=== PATIENT | male | born 1970 | race Caucasian/White ===

== ENCOUNTER 2016-10-30 12:22 | Outpatient (CLI) | payer OTHER ==
[2016-10-30 12:38] LABS: BASOPHILS # (AUTO) 0.1 K/uL (0-0.2); EOSINOPHILS # (AUTO) 0.5 K/ul (0.0-0.7); EOSINOPHILS % (AUTO) 4.4 % (0.0-7.0); HEMATOCRIT 45.9 % (42.0-52.0); HEMOGLOBIN 16.3 g/dl (14.0-18.0); IMMATURE GRANULOCYTE % (AUTO) 0.4 % (0.0-5.0); LYMPHOCYTES % (AUTO) 38.5 (10.0-50.0); MEAN CORPUSCULAR HEMOGLOBIN 31.2 pg (27.0-31.0); MEAN CORPUSCULAR HGB CONC 35.5 (31.8-35.4); MEAN CORPUSCULAR VOLUME 87.8 fl (80.0-94.0); MONOCYTES # (AUTO) 0.8 K/uL (0.4-2.0); MONOCYTES % (AUTO) 7.7 (0-10); PLATELET COUNT 253 10^3/uL (140-440); RED BLOOD COUNT 5.23 10^6/ul (4.70-6.10); WHITE BLOOD COUNT 10.44 K/ul (4.2-10.2)
[2016-10-30 12:57] LABS: ALBUMIN 3.3 g/dL (3.4-5.0); ALBUMIN/GLOBULIN RATIO 0.8; ANION GAP 15.2; BILIRUBIN,TOTAL 0.36 mg/dL (0.00-1.20); BUN/CREATININE RATIO 15.47; CALCIUM 9.2 mg/dL (8.2-10.2); CREATININE 0.84 mg/dL (0.60-1.10); POTASSIUM 4.2 mmol/L (3.5-5.1); TOTAL PROTEIN 7.4 g/dL (6.4-8.2)
== END 2016-10-30 12:23 | disposition home or self-care (01) ==
LOC: LAB 12:22
PROVIDERS: ATTEND Internal Medicine Hematology & Oncology
DX: D75.1 Secondary polycythemia (principal)
CPT/HCPCS: 36415; 80053; 85025

== ENCOUNTER 2016-12-30 12:51 | Outpatient (CLI) | payer OTHER ==
[2016-12-30 13:17] LABS: BASOPHILS # (AUTO) 0.1 K/uL (0-0.2); EOSINOPHILS # (AUTO) 0.3 K/ul (0.0-0.7); EOSINOPHILS % (AUTO) 2.9 % (0.0-7.0); HEMATOCRIT 44.2 % (42.0-52.0); HEMOGLOBIN 15.4 g/dl (14.0-18.0); IMMATURE GRANULOCYTE % (AUTO) 0.4 % (0.0-5.0); LYMPHOCYTES # (AUTO) 3.7 K/uL (0.60-3.4); LYMPHOCYTES % (AUTO) 32.8 (10.0-50.0); MEAN CORPUSCULAR HEMOGLOBIN 30.7 pg (27.0-31.0); MEAN CORPUSCULAR HGB CONC 34.8 (31.8-35.4); MEAN CORPUSCULAR VOLUME 88.2 fl (80.0-94.0); MONOCYTES # (AUTO) 0.8 K/uL (0.4-2.0); NEUTROPHILS # (AUTO) 6.3 K/ul (2.0-6.9); NEUTROPHILS % (AUTO) 55.9; PLATELET COUNT 300 10^3/uL (140-440); RED BLOOD COUNT 5.01 10^6/ul (4.70-6.10); WHITE BLOOD COUNT 11.21 K/ul (4.2-10.2)
== END 2016-12-30 12:52 | disposition home or self-care (01) ==
LOC: LAB 12:51
PROVIDERS: ATTEND Internal Medicine Hematology & Oncology
DX: D75.1 Secondary polycythemia (principal)
CPT/HCPCS: 36415; 85025

== ENCOUNTER 2017-04-29 12:18 | Outpatient (CLI) ==
[2017-04-29 12:42] LABS: BASOPHILS # (AUTO) 0.1 K/uL (0-0.2); BASOPHILS % (AUTO) 0.9 % (0.0-3.0); EOSINOPHILS # (AUTO) 0.4 K/ul (0.0-0.7); EOSINOPHILS % (AUTO) 3.4 % (0.0-7.0); HEMOGLOBIN 17.2 g/dl (14.0-18.0); IMMATURE GRANULOCYTE % (AUTO) 0.3 % (0.0-5.0); LYMPHOCYTES # (AUTO) 3.9 K/uL (0.60-3.4); LYMPHOCYTES % (AUTO) 37.6 (10.0-50.0); MEAN CORPUSCULAR HEMOGLOBIN 31.7 pg (27.0-31.0); MEAN CORPUSCULAR HGB CONC 35.5 (31.8-35.4); MEAN CORPUSCULAR VOLUME 89.3 fl (80.0-94.0); MONOCYTES % (AUTO) 9.4 (0-10); NEUTROPHILS % (AUTO) 48.4; PLATELET COUNT 272 10^3/uL (140-440); RED BLOOD COUNT 5.43 10^6/ul (4.70-6.10)
[2017-04-29 12:49] LABS: HEMATOCRIT 48.5 % (42.0-52.0)
[2017-04-29 13:02] LABS: ALBUMIN 3.2 g/dL (3.4-5.0); ALBUMIN/GLOBULIN RATIO 0.78; ANION GAP 11.9; BILIRUBIN,TOTAL 0.27 mg/dL (0.00-1.20); BUN/CREATININE RATIO 14.77; CALCIUM 9.8 mg/dL (8.2-10.2); CREATININE 0.88 mg/dL (0.60-1.10); POTASSIUM 3.9 mmol/L (3.5-5.1); TOTAL PROTEIN 7.3 g/dL (6.4-8.2)
== END 2017-04-29 12:19 | disposition home or self-care (01) ==
LOC: LAB 12:18
PROVIDERS: ATTEND Internal Medicine Hematology & Oncology
DX: D75.1 Secondary polycythemia (principal)
CPT/HCPCS: 36415; 80053; 85025

== ENCOUNTER 2017-10-27 12:22 | Outpatient (CLI) | payer OTHER | END 2017-10-27 12:23 | disposition home or self-care (01) | LOC: LAB 12:22 | PROVIDERS: ATTEND Internal Medicine Hematology & Oncology | DX: D75.1 Secondary polycythemia (principal) | CPT/HCPCS: 36415; 80053; 85025 ==

== ENCOUNTER 2018-04-28 11:55 | Outpatient (CLI) | END 2018-04-28 11:56 | disposition home or self-care (01) | LOC: LAB 11:55 | PROVIDERS: ATTEND Internal Medicine Hematology & Oncology | DX: D75.1 Secondary polycythemia (principal) | CPT/HCPCS: 36415; 80053; 85025 ==

== ENCOUNTER 2018-10-26 11:52 | Outpatient (CLI) | payer OTHER | END 2018-10-26 11:53 | disposition home or self-care (01) | LOC: LAB 11:52 | PROVIDERS: ATTEND Internal Medicine Hematology & Oncology | DX: D75.1 Secondary polycythemia (principal) | CPT/HCPCS: 36415; 80053; 85025 ==

== ENCOUNTER 2024-04-06 12:09 | Observation (INO) ==
--- NOTE | 2024-04-06 12:28 | ED.PDOC ---
General ED Provider: Dr. MURALI RANGEL MD Chief Complaint: Ankle Pain/Injury Stated Complaint: Patient is a 53-year-old male that reported to the emergency department with right ankle pain and swelling. Patient stated that it started this morning. Patient stated that he does not remember hurting himself but he has been walking around a lot recently. Patient stated that he had a stroke on his right side which makes him a little bit more worried that he is having pain in that right ankle. Patient denied any deformity. Patient stated that his primary care doctor has diagnosed him with edema of the lower extremities and placed him on Lasix but he has not used them as prescribed. Patient also states that he has had swelling bilaterally in the lower extremities for the past few days. Patient denies any discharge or ulcers in the lower extremities. Patient denies any shortness of breath, chest pain, nausea, vomiting, diarrhea, dizziness, syncope, loss of consciousness, or any other acute symptoms not currently mentioned in the HPI. Patient's GCS is 15. Patient's vital signs are stable. Patient does have a history of CKD, GERD, CVA, diabetes mellitus type 2, hyperlipidemia, and hypertension. Time Seen by Provider: 04/06/24 12:12 Mode of Arrival: Walk-In Information Source: Patient Exam Limitations: No limitations Primary Care Provider: KEITH DIGGS APRN, FNP-C Nursing and Triage Documentation Reviewed and Agree: Yes Does Patient Take Opioids?: No Is Patient Opioid Naive?: No What is Opioid Naive?: *Opioid Naive implies the patient is not already taking opioids or not chronically receiving opioids on a daily basis. *PRN dosing is not "usually" associated with tolerance. *Patients are at higher risk of over-sedation and aspiration. Is Patient Opioid Tolerant?: No What is Opioid Tolerant?: *Opioid Tolerance implies less than the expected response to an opioid. *Acquired tolerance is defined by the patient taking 60mg of oral morphine daily (or equianalgesic dose of another opioid) for 1 week or more. *Often associated with chronic pain. *May take more than usual dose to achieve desired pain control. Review of Systems Review Of Systems Constitutional: Reports No symptoms Eyes: Reports No symptoms Ears, Nose, Mouth, Throat: Reports No symptoms Respiratory: Reports No symptoms Cardiac: Reports No symptoms GI: Reports No symptoms : Reports No symptoms Musculoskeletal: Reports Joint pain (Right ankle pain and right foot pain) Skin: Reports No symptoms Neurological: Reports No symptoms Endocrine: Reports No symptoms Hematologic/Lymphatic: Reports No symptoms All Other Systems: Reviewed and Negative PFSH Family History FATHER COPD (chronic obstructive pulmonary disease) Lung cancer Diabetes Hypertension Mother Diabetes Hypertension MATERNAL GRANDMOTHER Diabetes Social History Smoking and tobacco status: Current every day smoker Tobacco type: cigarettes Tobacco: How many years used: 35 How long ago did patient quit smoking: restarted smoking in November 2022 Quit status: not considering quitting Second hand smoke exposure: Yes Smoking risk assessment performed: Yes Alcohol intake: former Year quit: 30 + Substance use type: does not use Counseling provided: none Michelle/rastafari: NONE Special michelle needs: No Agree to transfusion: Yes Adopted: Yes Caregiver/support person: No Foster care: No Household members: none Housing: apartment Marital status: D Lives independently: Yes Number of children: 2 Number of grandchildren: 8 Highest education level completed: high school graduate Financial difficulty paying for basics: somewhat hard service: No intermediate: No Current occupational status: disabled 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[place] Pets and animals: No Leisure activites: games and other History of recent travel: No Sexually active: No Do you think of yourself as: straight/heterosexual Current gender identity: male Seatbelt use: always Drives intoxicated or rides with intoxicated van driver: No Current diet type/program: regular Well-balanced diet: rarely Caffeine: Yes Eating out: other Reads food labels: seldom or never During the past year weight has: remained stable Water heater temperature set < 120 degrees: Yes Working smoke detector in home: Yes Fire extinguisher in home: Yes Carbon monoxide detector in home: Yes Firearms in home: Yes What type of physical activity do you participate in?: none Physical activity functional status: assisted ambulation How many days of moderate to strenuous exercise, like a brisk walk, did you do in the last 7 days: 0 Surgical History 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 Z98.890 - Other specified postprocedural states (ICD-10) Physical Exam Physical Exam Appearance: Reports Well-appearing and Well-nourished Ill-appearing: None Pain Distress: Mild Eyes: Reports INGRID, EOMI and Conjunctiva clear ENT: Reports Ears normal, Nose normal and Oropharynx normal Neck: Supple Respiratory: Reports Airway patent, Breath sounds clear, Breath sounds equal and Respirations nonlabored Cardiovascular: Reports RRR, Pulses normal, No rub and No murmur GI/: Reports Soft, Nontender, No masses, Bowel sounds normal and No Organomegaly Musculoskeletal: Reports Normal strength, No calf tenderness, Limited ROM (Limited range of motion in plantar and dorsiflexion of the right ankle due to pain. No obvious deformities noted.) and Edema (Patient has stasis dermatitis of the lower extremities around the ankles bilaterally. Patient also has +2 pitting edema bilaterally. Patient's left lower extremity dermatitis is more erythematous than the right. Pain to palpation of that left lower extremity around the RIGHT ankle swelling) Skin: Reports Warm, Dry and Other (Patient has an erythematous circumferential area of cellulitis around the right ankle up to the low whitt. There is no discharge. Patient also has a diabetic ulcer on the lateral aspect of the right fifth LE phalange (No purulent discharge noted).) Neurological: Reports Sensation intact, Motor intact, Reflexes intact, Cranial nerves intact, Alert and Oriented Psychiatric: Reports Affect appropriate and Mood appropriate Critical Care Note Critical Care Note Total Critical Care Time (mins): 60 Comments: Critical Care Procedure Note Authorized and Performed by:Dr. Murali Rangel MD, MPH Total critical care time: 60 minutes Due to a high probability of clinically significant, life threatening deterioration, the patient required my highest level of preparedness to intervene emergently and I personally spent this critical care time directly and personally managing the patient. This critical care time included obtaining a history; examining the patient; pulse oximetry; ordering and review of studies; arranging urgent treatment with development of a management plan; evaluation of patient's response to treatment; frequent reassessment; and, discussions with other providers. This critical care time was performed to assess and manage the high probability of imminent, life-threatening deterioration that could result in multi-organ failure. It was exclusive of separately billable procedures and treating other patients and teaching time. Please see MDM section and the rest of the note for further information on patient assessment and treatment. Course Course 04/06/24 13:21 04/06/24 13:21 Orders, Labs, Meds: Lab Review 04/06/24 04/06/24 13:21 14:22 WBC 17.17 H RBC 4.09 L Hgb 12.2 L Hct 38.8 L MCV 94.9 H MCH 29.8 MCHC 31.4 L RDW Coeff of Michaela 14.1 Plt Count 281 Immature Gran % (Auto) 0.5 Neut % (Auto) 82.6 H Lymph % (Auto) 7.7 L [place] % (Auto) 5.8 Eos % (Auto) 3.0 Baso % (Auto) 0.4 Neut # (Auto) 14.2 H Lymph # (Auto) 1.3 [place] # (Auto) 1.0 Eos # (Auto) 0.5 Baso # (Auto) 0.1 Immature Gran # (Auto) 0.1 Sodium 139.7 Potassium 5.25 H Chloride 110.5 H Carbon Dioxide 18.3 L Anion Gap 16.15 BUN 49.1 H Creatinine 3.01 H Estimated GFR (MDRD) 22.00 BUN/Creatinine Ratio 16.31 Glucose 90.0 Calcium 9.37 Total Bilirubin 0.59 AST 26.6 ALT 17.9 Alkaline Phosphatase 100.8 Total Protein 7.56 Albumin 4.07 Globulin 3.49 Albumin/Globulin Ratio 1.16 Urine Color Yellow Urine Clarity Cloudy Urine pH 7.0 Ur Specific [place] 1.025 Urine Protein 3+ H Urine Glucose (UA) 2+ H Urine Ketones Negative Urine Blood 1+ H Urine Nitrite Negative Urine Bilirubin Negative Urine Urobilinogen 0.2 Ur Leukocyte Esterase Negative Urine Microscopic RBC 5-10 Urine Microscopic WBC 30-50 Ur Squamous Epith Cells Not present Urine Bacteria 1+ SARS CoV-2 RNA Rapid ISABEL Negative Orders Category Date Time Status OBSERVATION [PLACE PATIENT OBSERVATION] .TO MEDSURG ADMISSION 04/06/24 15:56 Ordered (MONITORED BED) EKG-(ED ONLY) Stat CARDIO 04/06/24 13:52 Completed NEBULIZER TREATMENT Stat CARDIO 04/06/24 13:59 Completed NEBULIZER TREATMENT Stat CARDIO 04/06/24 14:00 Completed NEBULIZER TREATMENT Stat CARDIO 04/06/24 14:01 Completed TELEMETRY MONITORING TELE CARE 04/06/24 15:57 Ordered BLOOD CULTURE (ED ONLY) Stat LAB 04/06/24 15:35 Received CBC W/ AUTO DIFF Stat LAB 04/06/24 13:21 Completed CMP [COMPREHENSIVE METABOLIC PANEL] Stat LAB 04/06/24 13:21 Completed COVID [SARS COV-2 RNA RAPID ISABEL] Stat LAB 04/06/24 14:22 Completed CULTURE WOUND [WOUND CULTURE] Stat LAB 04/06/24 15:54 Ordered URINALYSIS C & S IF INDICATED Stat LAB 04/06/24 14:22 Completed URINE CULTURE Stat LAB 04/06/24 14:22 Received Albuterol Sulfate 0.042% Neb [Albuterol 0.042% Neb] Meds 04/06/24 13:59 Discontinued 1.25 mg NEB ONCE STA Albuterol Sulfate 0.042% Neb [Albuterol 0.042% Neb] Meds 04/06/24 14:00 Discontinued 1.25 mg NEB ONCE STA Albuterol Sulfate 0.042% Neb [Albuterol 0.042% Neb] Meds 04/06/24 14:01 Discontinued 1.25 mg NEB ONCE STA Calcium Chloride Syringe [Calcium Chloride 10%] Meds 04/06/24 13:55 Discontinued 1,000 mg IVP ONCE STA Clindamycin Phosphate/D5w [Cleocin 600 mg/50 ml D5w] Meds 04/06/24 15:00 Discontinued 600 mg in 50 ml IV ONCE Dextrose 50 % in Water [Dextrose 50%-Water Abboject] Meds 04/06/24 13:55 Discontinued 50 ml IVP ONCE STA Furosemide [Lasix] Meds 04/06/24 14:18 Discontinued 60 mg IVP ONCE STA Insulin Regular, Human [Humulin R (10Ml)] Meds 04/06/24 13:55 Discontinued 10 unit IVP ONCE STA Ringers Lactated Solution [Lactated Ringers] 1,000 ml Meds 04/06/24 13:53 Active IV 100 mls/hr ANKLE, RIGHT MIN 3 VIEWS Stat RADS 04/06/24 12:22 Completed FOOT, RIGHT 3 VIEWS Stat RADS 04/06/24 12:22 Completed ULTRASOUND VENOUS SCAN RT. LEG [U/S VENOUS SCAN RT LEG] RADS 04/06/24 14:03 Completed Stat Medications Generic Name Dose Route Start Last Admin Trade Name Freq PRN Reason Stop Dose Admin Lactated Ringer's 1,000 mls @ 100 mls/hr 04/06/24 13:53 Lactated Ringers IV 04/06/24 23:52 .Q10H ONE Discontinued Medications Generic Name Dose Route Start Last Admin Trade Name Tino PRN Reason Stop Dose Admin Albuterol Sulfate 1.25 mg 04/06/24 13:59 04/06/24 14:32 Albuterol Sulfate 0.042% Vial.[facility] 04/06/24 14:00 1.25 mg ONCE STA Administration Albuterol Sulfate 1.25 mg 04/06/24 14:00 04/06/24 14:48 Albuterol Sulfate 0.042% Vial.[facility] 04/06/24 14:01 1.25 mg ONCE STA Administration Albuterol Sulfate 1.25 mg 04/06/24 14:01 04/06/24 14:23 Albuterol Sulfate 0.042% Vial.[facility] 04/06/24 14:02 1.25 mg ONCE STA Administration Calcium Chloride 1,000 mg 04/06/24 13:55 04/06/24 14:34 Calcium Chloride 1000 Mg/10 Ml Syringe IVP 04/06/24 13:56 1,000 mg ONCE STA Administration Dextrose 50 ml 04/06/24 13:55 04/06/24 14:34 Dextrose 50 % In Water 50 Ml Disp.Syrin IVP 04/06/24 13:56 50 ml ONCE STA Administration Furosemide 60 mg 04/06/24 14:18 04/06/24 14:47 Furosemide Inj 100 Mg/10 Ml Vial IVP 04/06/24 14:19 60 mg ONCE STA Administration Clindamycin Phosphate 600 mg in 50 mls @ 75 mls/hr 04/06/24 15:00 04/06/24 15:43 Cleocin 600 Mg/50 Ml D5w IV 04/06/24 15:39 75 mls/hr ONCE ONE Administration Insulin Human Regular 10 unit 04/06/24 13:55 04/06/24 14:43 Insulin Regular, Human 100 Unit/Ml (10ml) Vial IVP 04/06/24 13:56 10 unit ONCE STA Administration Vital Signs: Temp Pulse Resp BP Pulse Ox 04/06/24 12:24 98.6 F 85 18 168/84 H 99 Discharge Plan Discharge Patient Disposition: PLACED OBSERVATION Discharge Problem: Foot pain, right, Edema of both lower extremities, Chronic stasis dermatitis, Acute kidney injury superimposed on chronic kidney disease, Acute hyperkalemia, Dehydration Ankle pain, right Qualifiers: Chronicity: acute Qualified Code(s): M25.571 - Pain in right ankle and joints of right foot Cellulitis Qualifiers: Site of cellulitis: extremity Site of cellulitis of extremity: lower extremity Laterality: right Qualified Code(s): L03.115 - Cellulitis of right lower limb Fracture of toe of right foot Qualifiers: Encounter type: initial encounter Toe: lesser toe Fracture type: closed P halanx: proximal Fracture alignment: nondisplaced Qualified Code(s): S92.514A - Nondisplaced fracture of proximal phalanx of right lesser toe(s), initial encounter for closed fracture Did you review [place] [employer] for ALL controlled substances?: Not Applicable ED Provider: MURAIL RANGEL Condition: Stable Physician Progress Note: Patient is a 53-year-old male that reported to the emergency department with right ankle pain and swelling. Patient stated that it started this morning. Patient stated that he does not remember hurting himself but he has been walking around a lot recently. Patient stated that he had a stroke on his right side which makes him a little bit more worried that he is having pain in that right ankle. Patient denied any deformity. Patient stated that his primary care doctor has diagnosed him with edema of the lower extremities and placed him on Lasix but he has not used them as prescribed. Patient also states that he has had swelling bilaterally in the lower extremities for the past few days. Patient denies any discharge or ulcers in the lower extremities. Patient denies any shortness of breath, chest pain, nausea, vomiting, diarrhea, dizziness, syncope, loss of consciousness, or any other acute symptoms not currently mentioned in the HPI. Patient's GCS is 15. Patient's vital signs are stable. Patient does have a history of CKD, GERD, CVA, diabetes mellitus type 2, hyperlipidemia, and hypertension. -Will order x-ray of the right ankle and right foot due to patient's injury to the right lower extremity. -X-ray of the patient's right ankle shows no acute fractures or dislocations. This was interpreted by the ER physician. -X-rays of the patient's right foot shows Minimally-displaced fracture at the base of the fourth proximal phalanx and likely additional fracture at the medial aspect of the fifth proximal phalanx base. Overall evaluation of small nondisplaced fractures limited by the degree of osseous demineralization. This was interpreted by the ER physician. Will jamshid tape pt's 4th and 5th phalanx. --Patient has lower extremity edema that is pitting 2+ with stasis dermatitis. Will give the patient IV Lasix 60 mg once for diuresis. -Will oorder an ultrasound of the right lower extremity to rule out blood clot as patient has pain in the right ankle with erythema around the area. -Patient has a white count of 17,000, H&H is 12 and 38 respectively (anemia of chronic kidney disease). Patient's potassium is 5.25 (hyperkalemic). Patient's BUN is 49 and creatinine is 3.01 which is elevated from baseline (RICHIE on CKD). -EKG shows normal sinus rhythm with a rate of [address] elevations noted. This was interpreted by the ER physician. -For patient's hyperkalemia will give IV insulin 10 units followed by IV dextrose 50. Will give 3 albuterol treatments. Will give calcium chloride 1 g. -For patient's RICHIE on CKD and due to patient's hyperkalemia in order to prevent from worsening of hyperkalemia or acidosis will give IV lactated Ringer's 1 L at 100 mL an hour. -Will order wound cultures of the patient's right foot ulcer and blood cultures. -Appears patient has also has cellulitis of the right lower extremity. Will give the patient IV clindamycin 300 mg once in the ER -([id number]) spoke to hospitalist at [facility], Jose Landon NP and discussed the patient's case and current treatment and current status. She knows patient is pending ultrasound of the right lower extremity to rule out DVT. She has agreed to accept the patient for observation in the hospital. Will wait for the right lower extremity ultrasound in case heparinization is needed and then place the patient on observation status in the hospital. -No evidence of DVT found on ultrasound of the right lower extremity. -([id number])Patient will be admitted for observation in the hospital.
[2024-04-06 13:25] LABS: BASOPHILS # (AUTO) 0.1 K/uL (0-0.2); BASOPHILS % (AUTO) 0.4 % (0.0-3.0); EOSINOPHILS # (AUTO) 0.5 K/ul (0.0-0.7); HEMATOCRIT 38.8 % (42.0-52.0); HEMOGLOBIN 12.2 g/dl (14.0-18.0); IMMATURE GRANULOCYTE # (AUTO) 0.1 (0.0-1.0); IMMATURE GRANULOCYTE % (AUTO) 0.5 % (0.0-5.0); LYMPHOCYTES # (AUTO) 1.3 K/uL (0.60-3.4); LYMPHOCYTES % (AUTO) 7.7 (10.0-50.0); MEAN CORPUSCULAR HEMOGLOBIN 29.8 pg (27.0-31.0); MEAN CORPUSCULAR HGB CONC 31.4 (31.8-35.4); MEAN CORPUSCULAR VOLUME 94.9 fl (80.0-94.0); MONOCYTES % (AUTO) 5.8 (0-10); NEUTROPHILS # (AUTO) 14.2 K/ul (2.0-6.9); NEUTROPHILS % (AUTO) 82.6 % (42.2-75.2); PLATELET COUNT 281 10^3/uL (140-440); RDW COEFFICIENT OF VARIATION 14.1 % (11.6-14.8); RED BLOOD COUNT 4.09 10^6/ul (4.70-6.10); WHITE BLOOD COUNT 17.17 K/ul (4.2-10.2)
[2024-04-06 13:37] LABS: ALANINE AMINOTRANSFERASE 17.9 U/L (0-50); ALBUMIN 4.07 g/dL (3.5-5.0); ALKALINE PHOSPHATASE 100.8 U/L (38-126); ASPARTATE AMINO TRANSFERASE 26.6 U/L (17-59); BILIRUBIN,TOTAL 0.59 mg/dL (0.2-1.3); BLOOD UREA NITROGEN 49.1 mg/dL (9-20); CALCIUM 9.37 mg/dL (8.4-10.2); CARBON DIOXIDE 18.3 mmol/L (22-30.0); CHLORIDE 110.5 mmol/L (98-107); CREATININE 3.01 mg/dL (0.60-1.10); POTASSIUM 5.25 mmol/L (3.5-5.1); SODIUM 139.7 mmol/L (134.5-145); TOTAL PROTEIN 7.56 g/dL (6.3-8.2)
[2024-04-06] MEDS ORDERED: LACTATED RINGERS 1,000 ML IV ONE (13:53)
[2024-04-06] MEDS ORDERED: CLEOCIN 300 MG/50 ML D5W 300 MG/50 ML BAG IV ONE (14:05)
[2024-04-06] MEDS: ALBUTEROL 0.042% NEB NEB STA ×3 (14:23→14:48)
[2024-04-06] MEDS: DEXTROSE 50%-WATER ABBOJECT IVP STA (14:34)
[2024-04-06] MEDS: CALCIUM CHLORIDE 10% IVP STA (14:34)
[2024-04-06] MEDS: HUMULIN R (10ML) IVP STA (14:43)
[2024-04-06] MEDS: LASIX IVP STA (14:47)
[2024-04-06 14:59] LABS: BILIRUBIN,URINE Negative (NEGATIVE); CLARITY,URINE Cloudy (CLEAR); COLOR,URINE Yellow (YELLOW); GLUCOSE, URINE (UA) 2+ (NEGATIVE); KETONES,URINE Negative (NEGATIVE); LEUKOCYTE ESTERASE ,URINE Negative (NEGATIVE); NITRITE,URINE Negative (NEGATIVE); PROTEIN,URINE 3+ (NEGATIVE); URINE, BLOOD 1+ (NEGATIVE); UROBILINOGEN,URINE 0.2 (0.2)
[2024-04-06 15:06] LABS: SQUAMOUS EPITHELIAL CELL,UR NOT PRESENT (0-5)
[2024-04-06 15:07] LABS: BACTERIA,URINE 1+ (NOT PRESENT); URINE WBC, MICROSCOPIC 30-50 (0-2)
[2024-04-06 15:11] LABS: SARS COV-2 RNA RAPID NAAT NEGATIVE (NEGATIVE)
--- NOTE | 2024-04-06 15:18 | DI ---
EXAM: RIGHT FOOT RADIOGRAPH TECHNIQUE: 3 views of the right foot HISTORY: Right foot injury COMPARISON: None. FINDINGS: There is severe osseous demineralization which limits evaluation of small and nondisplaced fractures. Allowing for this there is a minimally displaced fracture at the base of the fourth proximal phalan x and likely additional fracture of the medial aspect of the fifth proximal phalanx base. There is p olyarticular forefoot and midfoot osteoarthritis. No focal soft tissue abnormality. Small calcaneal enthesophytes. Atherosclerotic calcifications. IMPRESSION: Minimally-displaced fracture at the base of the fourth proximal phalanx and likely additional fractur e at the medial aspect of the fifth proximal phalanx base. Overall evaluation of small nondisplaced fractures limited by the degree of osseous demineralization.
--- NOTE | 2024-04-06 15:19 | DI ---
EXAM: RIGHT ANKLE RADIOGRAPH TECHNIQUE: 3 views of the right ankle HISTORY: Right ankle injury. COMPARISON: None. FINDINGS: There is diffuse soft tissue prominence about the ankle. Subjective diffuse osseous demineralization . No fracture or dislocation. Normal contour the talar dome. Mild osteoarthritis at the ankle and hind foot. Calcaneal enthesophytes. Vascular calcifications. IMPRESSION: - No acute fracture or dislocation. - Nonspecific diffuse soft tissue prominence about the ankle. - Osseous demineralization.
[2024-04-06] MEDS: CLEOCIN 600 MG/50 ML D5W 600 MG/50 ML BAG IV ONE (15:43)
--- NOTE | 2024-04-06 15:49 | US ---
EXAM: RIGHT LOWER EXTREMITY VENOUS DOPPLER. HISTORY: Right lower leg swelling, pain. COMPARISON: None. TECHNIQUE: A duplex Doppler study was performed consisting of integrated two dimensional (2D) real-t varinder imaging color flow Doppler and Doppler spectral analysis utilizing linear array probes. FINDINGS: There is normal flow, venous waveforms, compressibility and augmentation of flow within th e right common femoral, greater saphenous, profunda, femoral, popliteal, posterior tibial, and perone al veins. Right anterior tibial vein is not identified. IMPRESSION: No evidence for right lower extremity deep vein thrombosis at the levels examined.
[2024-04-06] MEDS ORDERED: TYLENOL PO PRN (16:50)
[2024-04-06 18:06] VITALS: BMI 31.9
[2024-04-06] MEDS: SODIUM CHLORIDE 1,000 ML IV SCH (19:56)
[2024-04-06] MEDS: ROCEPHIN 1 GM/50 ML D5W 1 GM/50 ML BAG IV SCH (19:57)
[2024-04-06] MEDS: HUMULIN R (10ML) SUBCUT PRN (21:03)
[2024-04-06] MEDS: LEVEMIR SUBCUT SCH (21:03)
[2024-04-06] MEDS: LIPITOR PO SCH (21:04)
[2024-04-06] MEDS: PEPCID PO SCH (21:04)
[2024-04-06] MEDS: SODIUM BICARBONATE PO SCH (21:04)
[2024-04-06] MEDS: COREG PO SCH (21:04)
[2024-04-06 21:33] LABS: BLOOD UREA NITROGEN 48.3 mg/dL (9-20); CALCIUM 9.42 mg/dL (8.4-10.2); CARBON DIOXIDE 18.2 mmol/L (22-30.0); CHLORIDE 108.9 mmol/L (98-107); CREATININE 3.01 mg/dL (0.60-1.10); GLUCOSE 222.2 mg/dL (74-106); POTASSIUM 5.03 mmol/L (3.5-5.1); SODIUM 137.4 mmol/L (134.5-145)
[2024-04-06] MEDS: CLEOCIN 600 MG/50 ML D5W 600 MG/50 ML BAG IV SCH (22:14)
[2024-04-07 05:35] LABS: BASOPHILS # (AUTO) 0.1 K/uL (0-0.2); BASOPHILS % (AUTO) 0.6 % (0.0-3.0); EOSINOPHILS # (AUTO) 0.3 K/ul (0.0-0.7); EOSINOPHILS % (AUTO) 2.6 % (0.0-7.0); HEMOGLOBIN 10.4 g/dl (14.0-18.0); IMMATURE GRANULOCYTE # (AUTO) 0.1 (0.0-1.0); IMMATURE GRANULOCYTE % (AUTO) 0.4 % (0.0-5.0); LYMPHOCYTES # (AUTO) 1.9 K/uL (0.60-3.4); LYMPHOCYTES % (AUTO) 15.2 (10.0-50.0); MEAN CORPUSCULAR HGB CONC 31.5 (31.8-35.4); MEAN CORPUSCULAR VOLUME 95.1 fl (80.0-94.0); MONOCYTES # (AUTO) 1.1 K/uL (0.4-2.0); MONOCYTES % (AUTO) 8.7 (0-10); NEUTROPHILS # (AUTO) 9.1 K/ul (2.0-6.9); NEUTROPHILS % (AUTO) 72.5 % (42.2-75.2); PLATELET COUNT 240 10^3/uL (140-440); RDW COEFFICIENT OF VARIATION 14.6 % (11.6-14.8); RED BLOOD COUNT 3.47 10^6/ul (4.70-6.10)
[2024-04-07 05:50] LABS: ALANINE AMINOTRANSFERASE 13.6 U/L (0-50); ALBUMIN 3.11 g/dL (3.5-5.0); ASPARTATE AMINO TRANSFERASE 19.6 U/L (17-59); BILIRUBIN,TOTAL 0.43 mg/dL (0.2-1.3); BLOOD UREA NITROGEN 49.8 mg/dL (9-20); CALCIUM 8.56 mg/dL (8.4-10.2); CARBON DIOXIDE 18.3 mmol/L (22-30.0); CREATININE 3.27 mg/dL (0.60-1.10); POTASSIUM 4.73 mmol/L (3.5-5.1); SODIUM 137.7 mmol/L (134.5-145); TOTAL PROTEIN 6.16 g/dL (6.3-8.2)
[2024-04-07] MEDS: FERROUS SULFATE PO SCH (08:09)
[2024-04-07] MEDS: NORVASC PO SCH (08:09)
[2024-04-07] MEDS: PLAVIX PO SCH (08:09)
[2024-04-07] MEDS: COZAAR PO SCH (08:09)
[2024-04-07] MEDS: COREG PO SCH (08:10)
[2024-04-07] MEDS: LASIX IVP SCH (12:07)
--- NOTE | 2024-04-07 13:43 | PCM ---
Date of Service Date Seen by Provider: 04/07/24 Time Seen by Provider: 08:30 Admit Day/Time Admission Date: 04/06/24 Reason for Admission Chief Complaint: RIGHT ANKLE PAIN GOING UP LEG Hospital Provider Hospital Provider: ARVIN YEUNG, [facility] Primary Care Physician Primary Care Physician: KEITH DIGGS APRN, FNP-C History of Present Illness History of Present Illness: 53-year-old male with past medical history of CVA, chronic kidney disease, diabetes, and hypertension who presented to the ER with complaints of right ankle pain, redness, and swelling. States that bilateral lower extremities are constantly red or discolored. n most recently right one has been swelling intermittently, and PCP started on Lasix for this. Yesterday when walking around he noticed sharp pain when placing weight on to the right foot shooting up into the ankle. 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 Renal function was found to be elevated in the ER with a creatinine of 3 at that time baseline was unknown. He was given fluids and 60 mg of Lasix. He was also started on clindamycin for treatment of cellulitis to the right lower extremity. There is no open wound or drainage from any area noted. He was found to have fractures to the fourth and fifth phalanx. Incidentally he also was found to have UTI. Denies symptoms at this time denies any fever. Admitted to [facility] observation. Case Discussed With Case Discussed With: Patient's case was discussed with the ER Physicians, Dr. Gómez. [facility] Medical History (Updated 04/07/24 @ 13:47 by ARVIN YEUNG) Chronic stasis dermatitis I87.2 - Venous insufficiency (chronic) (peripheral) (ICD-10) Hemiparesis affecting right side as late effect of cerebrovascular accident I69.351 - Hemiplegia and hemiparesis following cerebral infarction affecting right dominant side (ICD-10) Anemia D64.9 - Anemia, unspecified (ICD-10) HTN (hypertension) I10 - Essential (primary) hypertension (ICD-10) GERD (gastroesophageal reflux disease) K21.9 - Gastro-esophageal reflux disease without esophagitis (ICD-10) CKD stage G4/A1, GFR 15-29 and albumin creatinine ratio <30 mg/g N18.4 - Chronic kidney disease, stage 4 (severe) (ICD-10) Surgical History 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 Z98.890 - Other specified postprocedural states (ICD-10) Family History FATHER COPD (chronic obstructive pulmonary disease) Lung cancer Diabetes Hypertension Mother Diabetes Hypertension MATERNAL GRANDMOTHER Diabetes Social History Smoking and tobacco status: Current every day smoker Tobacco type: cigarettes Tobacco: How many years used: 35 How long ago did patient quit smoking: restarted smoking in November 2022 Quit status: not considering quitting Second hand smoke exposure: Yes Smoking risk assessment performed: Yes Alcohol intake: former Year quit: 30 + Substance use type: does not use Counseling provided: none Michelle/rastafari: NONE Special michelle needs: No Agree to transfusion: Yes Adopted: Yes Caregiver/support person: No Foster care: No Household members: none Housing: apartment Marital status: D Lives independently: Yes Number of children: 2 Number of grandchildren: 8 Highest education level completed: high school graduate Financial difficulty paying for basics: somewhat hard service: No custodial: No Current occupational status: disabled 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[place] Pets and animals: No Leisure activites: games and other History of recent travel: No Sexually active: No Do you think of yourself as: straight/heterosexual Current gender identity: male Seatbelt use: always Drives intoxicated or rides with intoxicated driver utility worker: No Current diet type/program: regular Well-balanced diet: rarely Caffeine: Yes Eating out: other Reads food labels: seldom or never During the past year weight has: remained stable Water heater temperature set < 120 degrees: Yes Working smoke detector in home: Yes Fire extinguisher in home: Yes Carbon monoxide detector in home: Yes Firearms in home: Yes What type of physical activity do you participate in?: none Physical activity functional status: assisted ambulation How many days of moderate to strenuous exercise, like a brisk walk, did you do in the last 7 days: 0 Allergies Allergies Allergy/AdvReac Type Severity Reaction Status Date / Time No Known Allergies AdvReac Unknown Uncoded 04/06/24 12:27 Current Medications Home Medications blood sugar diagnostic (Blood Glucose Test strips) #150 ea 04/23/23 [Rx Confirmed 04/06/24 Last Taken Unknown] blood-glucose meter (Blood Glucose Monitoring kit) #1 ea 04/23/23 [Rx Confirmed 04/06/24 Last Taken Unknown] lancets 33 gauge #200 ea 04/23/23 [Rx Confirmed 04/06/24 Last Taken Unknown] pen needle, diabetic 31 gauge x 5/16" (TRUEplus Pen Needle) #1,200 ea 04/23/23 [Rx Confirmed 04/06/24 Last Taken Unknown] insulin detemir U-100 100 unit/mL (3 mL) subcutaneous pen (Levemir FlexPen) See Rx Instructions .Route .COMPLEX #15 kits 05/19/23 [Rx Confirmed 04/06/24 Last Taken 04/05/24 21:00] losartan 100 mg tablet See Rx Instructions .Route .COMPLEX #180 tabs 10/19/23 [Rx Confirmed 04/06/24 Last Taken 04/06/24 07:00] triamcinolone acetonide 0.1 % topical cream 1 applic topical QDAY #80 grams 10/19/23 [Rx Confirmed 04/06/24 Last Taken 03/29/24] amlodipine 10 mg tablet See Rx Instructions .Route .COMPLEX #90 tabs 01/12/24 [Rx Confirmed 04/06/24 Last Taken 04/06/24 07:00] atorvastatin 80 mg tablet See Rx Instructions .Route .COMPLEX #90 tabs 01/12/24 [Rx Confirmed 04/06/24 Last Taken 04/05/24 20:00] carvedilol 12.5 mg tablet See Rx Instructions .Route .COMPLEX #180 tabs 01/12/24 [Rx Confirmed 04/06/24 Last Taken 04/06/24 07:00] clopidogrel 75 mg tablet See Rx Instructions .Route .COMPLEX #90 ea 01/12/24 [Rx Confirmed 04/06/24 Last Taken 04/06/24 08:00] famotidine 20 mg tablet See Rx Instructions .Route .COMPLEX #180 ea 01/12/24 [Rx Confirmed 04/06/24 Last Taken 04/06/24 08:00] ferrous sulfate 325 mg (65 mg iron) tablet (FeroSul) See Rx Instructions .Route .COMPLEX #90 tabs 01/12/24 [Rx Confirmed 04/06/24 Last Taken 04/06/24 07:00] linagliptin 5 mg tablet (Tradjenta) See Rx Instructions .Route .COMPLEX #90 tabs 01/12/24 [Rx Confirmed 04/06/24 Last Taken 04/06/24 07:00] dapagliflozin propanediol 10 mg tablet (Farxiga) 10 mg PO QAM 01/20/24 [History Confirmed 04/06/24 Last Taken 04/06/24 08:00] sodium bicarbonate 325 mg tablet 650 mg PO BID 01/20/24 [History Confirmed 04/06/24 Last Taken 04/06/24 07:00] cholecalciferol (vitamin D3) 1,250 mcg (50,000 unit) capsule 1,250 mcg PO WEEKLY 04/06/24 [History Confirmed 04/06/24 Last Taken 04/03/24 08:00] furosemide 40 mg tablet 40 mg PO DAILY 04/06/24 [History Confirmed 04/06/24 Last Taken 04/05/24 07:00] insulin aspart U-100 100 unit/mL (3 mL) subcutaneous pen (Novolog FlexPen U-100 Insulin aspart) 1 sliding scale dose subcut USEASDIRECTD PRN diabetes 04/06/24 [History Confirmed 04/06/24 Last Taken 03/08/24] spironolactone 25 mg tablet See Rx Instructions .Route .COMPLEX 04/06/24 [History Confirmed 04/06/24 Last Taken 04/06/24 07:00] Home Acetaminophen (Acetaminophen 325 Mg Tablet) 650 mg PO Q4H PRN PRN Reason: Mild Pain Amlodipine Besylate (Amlodipine Besylate 5 Mg Tablet) 10 mg PO DAILY [facility] Last Admin: 04/07/24 08:09 Dose: 10 mg Atorvastatin Calcium (Atorvastatin Calcium 20 Mg Tablet) 80 mg PO BEDTIME [facility] Last Admin: 04/06/24 21:04 Dose: 80 mg Carvedilol (Carvedilol 12.5 Mg Tablet) 12.5 mg PO BIDWM2 [facility] Last Admin: 04/07/24 08:10 Dose: 12.5 mg Clopidogrel Bisulfate (Clopidogrel Bisulfate 75 Mg Tablet) 75 mg PO DAILY [facility] Last Admin: 04/07/24 08:09 Dose: 75 mg Famotidine (Famotidine 20 Mg Tablet) 20 mg PO BID [facility] Last Admin: 04/07/24 08:09 Dose: 20 mg Ferrous Sulfate (Ferrous Sulfate 324 Mg Tablet.) 324 mg PO DAILY [facility] Last Admin: 04/07/24 08:09 Dose: 324 mg Furosemide (Furosemide Inj 40 Mg/4 Ml Vial) 40 mg IVP BIDAC2 [facility] Last Admin: 04/07/24 12:07 Dose: 40 mg CEFTRIAXONE/D5W 1 GM PREMIX (Rocephin 1 Gm/50 Ml D5w) 1 gm in 50 mls @ 100 mls/hr IV DAILY [facility] Stop: 04/09/24 17:59 Last Admin: 04/07/24 08:09 Dose: 100 mls/hr Insulin Detemir (Insulin Detemir 100 Units/Ml) 10 unit SUBCUT BEDTIME [facility] Last Admin: 04/06/24 21:03 Dose: 10 unit Insulin Human Regular (Insulin Regular, Human 100 Unit/Ml (10ml) Vial) 0 unit SUBCUT PRN PRN; Protocol PRN Reason: Hyperglycemia Last Admin: 04/07/24 12:07 Dose: 3 unit Losartan Potassium (Losartan Potassium 100 Mg Tablet) 100 mg PO DAILY [facility] Last Admin: 04/07/24 08:09 Dose: 100 mg Sodium Bicarbonate (Sodium Bicarbonate 650 Mg Tablet) 650 mg PO BID [facility] Last Admin: 04/07/24 08:10 Dose: 650 mg Sodium Chloride (0.9% Sodium Chloride 10 Ml Disp.Syrin) 1 syr IVF Q8HR [facility] Sodium Chloride (0.9% Sodium Chloride 10 Ml Disp.Syrin) 1 syr IVF PRN PRN PRN Reason: Maintain IV Patency Discontinued Medications Albuterol Sulfate (Albuterol Sulfate 0.042% Vial.Neb) 1.25 mg NEB ONCE STA Stop: 04/06/24 14:00 Last Admin: 04/06/24 14:32 Dose: 1.25 mg Albuterol Sulfate (Albuterol Sulfate 0.042% Vial.Neb) 1.25 mg NEB ONCE STA Stop: 04/06/24 14:01 Last Admin: 04/06/24 14:48 Dose: 1.25 mg Albuterol Sulfate (Albuterol Sulfate 0.042% Vial.Neb) 1.25 mg NEB ONCE STA Stop: 04/06/24 14:02 Last Admin: 04/06/24 14:23 Dose: 1.25 mg Calcium Chloride (Calcium Chloride 1000 Mg/10 Ml Syringe) 1,000 mg IVP ONCE STA Stop: 04/06/24 13:56 Last Admin: 04/06/24 14:34 Dose: 1,000 mg Carvedilol (Carvedilol 12.5 Mg Tablet) 12.5 mg PO BID [facility] Last Admin: 04/06/24 21:04 Dose: 12.5 mg Dextrose (Dextrose 50 % In Water 50 Ml Disp.Syrin) 50 ml IVP ONCE STA Stop: 04/06/24 13:56 Last Admin: 04/06/24 14:34 Dose: 50 ml Furosemide (Furosemide Inj 100 Mg/10 Ml Vial) 60 mg IVP ONCE STA Stop: 04/06/24 14:19 Last Admin: 04/06/24 14:47 Dose: 60 mg Clindamycin Phosphate (Cleocin 600 Mg/50 Ml D5w) 600 mg in 50 mls @ 75 mls/hr IV ONCE ONE Stop: 04/06/24 15:39 Last Admin: 04/06/24 15:43 Dose: 75 mls/hr Clindamycin Phosphate (Cleocin 600 Mg/50 Ml D5w) 600 mg in 50 mls @ 75 mls/hr IV Q8HR [facility] Stop: 04/09/24 22:59 Last Admin: 04/07/24 05:20 Dose: 75 mls/hr Sodium Chloride (Sodium Chloride) 1,000 mls @ 100 mls/hr IV .Q10H [facility] Last Admin: 04/07/24 06:08 Dose: 100 mls/hr Insulin Human Regular (Insulin Regular, Human 100 Unit/Ml (10ml) Vial) 10 unit IVP ONCE STA Stop: 04/06/24 13:56 Last Admin: 04/06/24 14:43 Dose: 10 unit Opioid Naive vs. Tolerant What is Opioid Naive?: *Opioid Naive implies the patient is not already taking opioids or not chronically receiving opioids on a daily basis. *PRN dosing is not "usually" associated with tolerance. *Patients are at higher risk of over-sedation and aspiration. What is Opioid Tolerant?: *Opioid Tolerance implies less than the expected response to an opioid. *Acquired tolerance is defined by the patient taking 60mg of oral morphine daily (or equianalgesic dose of another opioid) for 1 week or more. *Often associated with chronic pain. *May take more than usual dose to achieve desired pain control. Review of Systems Constitutional: Reports No symptoms Head: Reports Normocephalic Eyes: Reports No symptoms Ears: Reports No symptoms Nose: Reports No symptoms Mouth: Reports No symptoms Throat: Reports No symptoms Cardiovascular: Reports No symptoms Respiratory: Reports No symptoms Gastrointestinal: Reports No symptoms Genitourinary: Reports No Symptoms Musculoskeletal: Reports Other (R ankle pain) Endocrine: Reports No symptoms Hematology: Reports No symptoms Immunology: Reports No symptoms Neurological: Reports No symptoms Psychiatric: Reports No symptoms Physical examination Most Recent Vital Signs: Most Recent Vital Signs Temperature 98.8 F 04/07/24 10:00 Temperature Source Temporal Artery Scan 04/07/24 10:00 Temperature Source Infrared 04/06/24 12:24 Pulse Rate 69 04/07/24 10:00 Respiratory Rate 18 04/07/24 10:00 Blood Pressure 133/61 04/07/24 10:00 Blood Pressure Mean 85 04/07/24 10:00 Blood Pressure Left Arm 174/97 04/06/24 17:25 Blood Pressure Location Left Arm 04/07/24 10:00 Blood Pressure Position Sitting 04/07/24 10:00 O2 Sat by Pulse Oximetry 97 04/07/24 10:00 Oxygen Delivery Method Room Air 04/07/24 10:00 Height 6 ft 7 in 04/07/24 11:21 Weight 128.8 kg 04/07/24 11:21 Telemetry Type Remote Telemetry 04/07/24 07:00 Telemetry Monitoring Continues 04/07/24 07:00 Telemetry Heart Rate 61 04/07/24 07:00 EKG NM Interval 0.16 04/07/24 07:00 EKG QRS Interval 0.09 04/07/24 07:00 Telemetry Strip Reading SR with Interpolated PVC 04/07/24 07:00 Appearance: Positive No Apparent Distress, Alert and Oriented x3 and Ill- Appearing Skin: Positive Warm, Good Turgor, Erythema (Right lower ankle) and Other (Chronic venous stasis bilaterally, flaky skin, no open wounds) HEENT: Positive Normocephalic and PERRLA Neck: Positive Supple and Midline Trachea Chest/Lungs: Positive Symmetrical With Equal Breath Sounds, Clear to Auscultation Bilaterally and Good Air Movement all 4 Lung Campos Heart: Positive RRR and Pulses Normal GI/: Positive Soft, Nontender, Bowel Sounds Normal and No Distention Musculoskeletal: Positive Other (Hemiparesis to right side) and Not Examined Extremities: Positive Intact Peripheral Pulses and Stable Joints Without Laxity Neurological: Positive Sensation Intact, Motor intact, Alert and Oriented Labs This Visit Labs This Visit: Labs This Visit 04/06/24 04/06/24 04/06/24 13:21 14:22 21:13 WBC 17.17 H RBC 4.09 L Hgb 12.2 L Hct 38.8 L MCV 94.9 H MCH 29.8 MCHC 31.4 L RDW Coeff of Michaela 14.1 Plt Count 281 Immature Gran % (Auto) 0.5 Neut % (Auto) 82.6 H Lymph % (Auto) 7.7 L Logan % (Auto) 5.8 Eos % (Auto) 3.0 Baso % (Auto) 0.4 Neut # (Auto) 14.2 H Lymph # (Auto) 1.3 Logan # (Auto) 1.0 Eos # (Auto) 0.5 Baso # (Auto) 0.1 Immature Gran # (Auto) 0.1 Sodium 139.7 137.4 Potassium 5.25 H 5.03 Chloride 110.5 H 108.9 H Carbon Dioxide 18.3 L 18.2 L Anion Gap 16.15 15.33 BUN 49.1 H 48.3 H Creatinine 3.01 H 3.01 H Estimated GFR (MDRD) 22.00 22.00 BUN/Creatinine Ratio 16.31 16.04 Glucose 90.0 222.2 H D Calcium 9.37 9.42 Total Bilirubin 0.59 AST 26.6 ALT 17.9 Alkaline Phosphatase 100.8 Total Protein 7.56 Albumin 4.07 Globulin 3.49 Albumin/Globulin Ratio 1.16 Urine Color Yellow Urine Clarity Cloudy Urine pH 7.0 Ur Specific Cary 1.025 Urine Protein 3+ H Urine Glucose (UA) 2+ H Urine Ketones Negative Urine Blood 1+ H Urine Nitrite Negative Urine Bilirubin Negative Urine Urobilinogen 0.2 Ur Leukocyte Esterase Negative Urine Microscopic RBC 5-10 Urine Microscopic WBC 30-50 Ur Squamous Epith Cells Not present Urine Bacteria 1+ SARS CoV-2 RNA Rapid ISABEL Negative 04/07/24 05:03 WBC 12.60 H RBC 3.47 L Hgb 10.4 L Hct 33.0 L MCV 95.1 H MCH 30.0 MCHC 31.5 L RDW Coeff of Michaela 14.6 Plt Count 240 Immature Gran % (Auto) 0.4 Neut % (Auto) 72.5 Lymph % (Auto) 15.2 Logan % (Auto) 8.7 Eos % (Auto) 2.6 Baso % (Auto) 0.6 Neut # (Auto) 9.1 H Lymph # (Auto) 1.9 Logan # (Auto) 1.1 Eos # (Auto) 0.3 Baso # (Auto) 0.1 Immature Gran # (Auto) 0.1 Sodium 137.7 Potassium 4.73 Chloride 110.0 H Carbon Dioxide 18.3 L Anion Gap 14.13 BUN 49.8 H Creatinine 3.27 H Estimated GFR (MDRD) 20.00 BUN/Creatinine Ratio 15.22 Glucose 118.0 H D Calcium 8.56 Total Bilirubin 0.43 AST 19.6 ALT 13.6 Alkaline Phosphatase 76.0 Total Protein 6.16 L Albumin 3.11 L Globulin 3.05 Albumin/Globulin Ratio 1.01 Urine Color Urine Clarity Urine pH Ur Specific Cary Urine Protein Urine Glucose (UA) Urine Ketones Urine Blood Urine Nitrite Urine Bilirubin Urine Urobilinogen Ur Leukocyte Esterase Urine Microscopic RBC Urine Microscopic WBC Ur Squamous Epith Cells Urine Bacteria SARS CoV-2 RNA Rapid ISABEL Microbiology This Visit 04/06/24 14:22 Urine,Random Urine Culture - Preliminary 04/06/24 15:51 Foot - Right Wound Culture - Preliminary Imaging Imaging: EXAM: RIGHT ANKLE RADIOGRAPH TECHNIQUE: 3 views of the right ankle HISTORY: Right ankle injury. COMPARISON: None. FINDINGS: There is diffuse soft tissue prominence about the ankle. Subjective diffuse osseous demineralization. No fracture or dislocation. Normal contour the talar dome. Mild osteoarthritis at the ankle and hind foot. Calcaneal enthesophytes. Vascular calcifications. IMPRESSION: - No acute fracture or dislocation. - Nonspecific diffuse soft tissue prominence about the ankle. - Osseous demineralization. EXAM: RIGHT FOOT RADIOGRAPH TECHNIQUE: 3 views of the right foot HISTORY: Right foot injury COMPARISON: None. FINDINGS: There is severe osseous demineralization which limits evaluation of small and nondisplaced fractures. Allowing for this there is a minimally displaced fracture at the base of the fourth proximal phalanx and likely additional fracture of the medial aspect of the fifth proximal phalanx base. There is polyarticular forefoot and midfoot osteoarthritis. No focal soft tissue abnormality. Small calcaneal enthesophytes. Atherosclerotic calcifications. IMPRESSION: Minimally-displaced fracture at the base of the fourth proximal phalanx and likely additional fracture at the medial aspect of the fifth proximal phalanx base. Overall evaluation of small nondisplaced fractures limited by the degree of osseous demineralization. Review Statement Review Statement: I have independently reviewed and interpreted the labs/EKGs/imaging that were ordered by the ER provider. I have reviewed all outside records that are available currently in our EMR including imaging/notes/labs from previous visits. Plan Plan: 1. Cellulitis to right lower extremity - Rocephin 1 g every 24 hours, unable to culture due to no drainage 2. UTI - Rocephin 1 g every 24 hours, urine culture pending 3. Chronic kidney disease - patient baseline creatinine as of 02/12/2024 was 2.9, near baseline at 3.01, resume Lasix, stop IV fluids that were started last night, follows with nephrology at [facility] 4. Hyperkalemia - resolved, treated with calcium gluconate dextrose and insulin in the ER, monitor 5. Diabetes mellitus- ADA diet, Accu-Cheks qid with SSI, resume home insulin regimen DVT Prophylaxis: Ambulation Time Spent: Greater than 80 minutes spent with patient, 50% of the time spent with this patient was devoted to counseling and coordination of care. [facility]annin minutes spent discussing advance care planning. Smoking Cessation: 3-10 minutes spent discussing smoking cessation. Disposition: Admit to: Med/Surg Observation Full Code Discussed Plan of Care with Dr. Mariela Bonner. Medications Medication Orders: Medications Ordered Category Date Time Status 0.9 % Sodium Chloride [Saline Flush] Meds 04/07/24 09:18 Active 1 syr IVF PRN PRN 0.9 % Sodium Chloride [Saline Flush] Meds 04/07/24 13:00 Active 1 syr IVF Q8HR Acetaminophen [Tylenol] Meds 04/06/24 16:50 Active 650 mg PO Q4H PRN Amlodipine Besylate [Norvasc] Meds 04/07/24 09:00 Active 10 mg PO DAILY Atorvastatin Calcium [Lipitor] Meds 04/06/24 21:00 Active 80 mg PO BEDTIME Carvedilol [Coreg] Meds 04/07/24 07:30 Active 12.5 mg PO BIDWM2 Ceftriaxone/D5w 1 gm Premix [Rocephin 1 gm/50 ml D5w] Meds 04/06/24 18:00 Active 1 gm in 50 ml IV DAILY Clopidogrel Bisulfate [Plavix] Meds 04/07/24 09:00 Active 75 mg PO DAILY Famotidine [Pepcid] Meds 04/06/24 21:00 Active 20 mg PO BID Ferrous Sulfate Meds 04/07/24 09:00 Active 324 mg PO DAILY Furosemide [Lasix] Meds 04/07/24 09:25 Active 40 mg IVP BIDAC2 Insulin Detemir [Levemir] Meds 04/06/24 21:00 Active 10 unit SUBCUT BEDTIME Insulin Regular, Human [Humulin R (10Ml)] Meds 04/06/24 19:19 Active See Protocol SUBCUT PRN PRN Losartan Potassium [Cozaar] Meds 04/07/24 09:00 Active 100 mg PO DAILY Sodium Bicarbonate Meds 04/06/24 21:00 Active 650 mg PO BID
[2024-04-08 04:53] LABS: BASOPHILS # (AUTO) 0.1 K/uL (0-0.2); BASOPHILS % (AUTO) 0.6 % (0.0-3.0); EOSINOPHILS # (AUTO) 0.6 K/ul (0.0-0.7); EOSINOPHILS % (AUTO) 5.6 % (0.0-7.0); HEMOGLOBIN 10.8 g/dl (14.0-18.0); IMMATURE GRANULOCYTE % (AUTO) 0.4 % (0.0-5.0); LYMPHOCYTES # (AUTO) 2.1 K/uL (0.60-3.4); LYMPHOCYTES % (AUTO) 18.8 (10.0-50.0); MEAN CORPUSCULAR HEMOGLOBIN 30.3 pg (27.0-31.0); MEAN CORPUSCULAR HGB CONC 31.8 (31.8-35.4); MEAN CORPUSCULAR VOLUME 95.2 fl (80.0-94.0); MONOCYTES # (AUTO) 1.2 K/uL (0.4-2.0); MONOCYTES % (AUTO) 10.6 (0-10); PLATELET COUNT 233 10^3/uL (140-440); RDW COEFFICIENT OF VARIATION 14.2 % (11.6-14.8); RED BLOOD COUNT 3.57 10^6/ul (4.70-6.10); WHITE BLOOD COUNT 10.96 K/ul (4.2-10.2)
[2024-04-08 05:09] LABS: ALANINE AMINOTRANSFERASE 15.4 U/L (0-50); ALBUMIN 3.26 g/dL (3.5-5.0); ALKALINE PHOSPHATASE 78.8 U/L (38-126); ASPARTATE AMINO TRANSFERASE 20.5 U/L (17-59); BILIRUBIN,TOTAL 0.28 mg/dL (0.2-1.3); BLOOD UREA NITROGEN 53.3 mg/dL (9-20); CALCIUM 8.54 mg/dL (8.4-10.2); CARBON DIOXIDE 19.9 mmol/L (22-30.0); CHLORIDE 108.9 mmol/L (98-107); GLUCOSE 119.1 mg/dL (74-106); POTASSIUM 4.48 mmol/L (3.5-5.1); SODIUM 137.6 mmol/L (134.5-145); TOTAL PROTEIN 6.5 g/dL (6.3-8.2)
[2024-04-08 05:16] LABS: CREATININE 3.59 mg/dL (0.60-1.10)
--- NOTE | 2024-04-08 09:20 | DCSUM ---
Admission Date Admission Date: 04/06/24 Discharge Date Discharge Date: 04/08/24 Admission Diagnosis Admission Diagnosis: 1. Cellulitis to right lower extremity 2. UTI 3. Chronic kidney disease 4. Hyperkalemia 5. Diabetes mellitus Discharge Diagnosis Discharge Diagnosis: 1. Cellulitis to right lower extremity - Improving, enterococcus on wound culture 2. UTI - Improving, proteus on urine culture 3. Chronic kidney disease - Chronic, stable 4. Hyperkalemia - Resolved 5. Diabetes mellitus- Chronic, stable Hospital Provider Hospital Provider: ARVIN YEUNG, [facility] Primary Care Physician: KEITH DIGGS APRN, FNP-C Summary of History and Physical Summary of History and Physical: 53-year-old male with past medical history of CVA, chronic kidney disease, diabetes, and hypertension who presented to the ER with complaints of right ankle pain, redness, and swelling. States that bilateral lower extremities are constantly red or discolored. n most recently right one has been swelling intermittently, and PCP started on Lasix for this. Yesterday when walking around he noticed sharp pain when placing weight on to the right foot shooting up into the ankle. 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 Renal function was found to be elevated in the ER with a creatinine of 3 at that time baseline was unknown. He was given fluids and 60 mg of Lasix. He was also started on clindamycin for treatment of cellulitis to the right lower extremity. There is no open wound or drainage from any area noted. He was found to have fractures to the fourth and fifth phalanx. Incidentally he also was found to have UTI. Denies symptoms at this time denies any fever. Admitted to [facility]. Hospital Course Subjective: During stay, patient received rocephin 1G every 24 hours for treatment of cellulitis to R lower extremity and UTI. R lower extremity was cultured in ER and showed growth of enterococcus sensitive to current regimen. Urine culture showed proteus sensitive to current regimen as well. Sent home with RX for amoxicillin 500 mg Q12H ER provider based renal function off of previous labs and produced diagnosis of RICHIE on CKD. Recent labs completed at [facility] by Nephrology showed recent creatinine of 2.9 on 02/12/24. Lasix was given IV yesterday due to significant kapil ma to RLE. Secondary to chronic lymphedema. Urinating well. Mild worsening of creatinine to 3.6 due to diuresis. Initially hyperkalemic in the ER, which was treated and resolved. No changes to home medications. Follow-up with PCP and nephrology as scheduled. Appearance: Pleasant, No Apparent Distress and Alert HEENT: MMM and Supple CVS: No Murmur Abdomen: Soft and Non-Tender Respiratory: No Dyspnea Extremities: Other (erythema to RLE, +2-3 nonpitting edema to RLE, +2 pitting to LLE, chronic venous stasis noted with dermatitis) Vital Signs: Most Recent Vital Signs Temperature 97.2 F L 04/08/24 05:34 Temperature Source Temporal Artery Scan 04/08/24 05:34 Temperature Source Infrared 04/06/24 12:24 Pulse Rate 69 04/08/24 05:34 Respiratory Rate 18 04/08/24 05:34 Blood Pressure 146/87 H 04/08/24 05:34 Blood Pressure Mean 106 04/08/24 05:34 Blood Pressure Left Arm 174/97 04/06/24 17:25 Blood Pressure Location Left Arm 04/08/24 05:34 Blood Pressure Position Supine 04/08/24 05:34 O2 Sat by Pulse Oximetry 97 04/08/24 05:34 Oxygen Delivery Method Room Air 04/08/24 07:00 Height 6 ft 7 in 04/07/24 11:21 Weight 128 kg 04/08/24 05:35 Telemetry Type Remote Telemetry 04/08/24 00:47 Telemetry Monitoring Continues 04/08/24 00:47 Telemetry Heart Rate 59 L 04/08/24 00:47 EKG ME Interval 0.14 04/08/24 00:47 EKG QRS Interval 0.06 04/08/24 00:47 Telemetry Strip Reading sinus vannessa 04/08/24 00:47 Lab Results Last 24 Hours: 04/08/24 04:28 WBC 10.96 H RBC 3.57 L Hgb 10.8 L Hct 34.0 L MCV 95.2 H MCH 30.3 MCHC 31.8 RDW Coeff of Michaela 14.2 Plt Count 233 Immature Gran % (Auto) 0.4 Neut % (Auto) 64.0 Lymph % (Auto) 18.8 [place] % (Auto) 10.6 H Eos % (Auto) 5.6 Baso % (Auto) 0.6 Neut # (Auto) 7.0 H Lymph # (Auto) 2.1 [place] # (Auto) 1.2 Eos # (Auto) 0.6 Baso # (Auto) 0.1 Immature Gran # (Auto) 0.0 Sodium 137.6 Potassium 4.48 Chloride 108.9 H Carbon Dioxide 19.9 L Anion Gap 13.28 BUN 53.3 H Creatinine 3.59 H* Estimated GFR (MDRD) 18.00 BUN/Creatinine Ratio 14.84 Glucose 119.1 H Calcium 8.54 Total Bilirubin 0.28 AST 20.5 ALT 15.4 Alkaline Phosphatase 78.8 Total Protein 6.50 Albumin 3.26 L Globulin 3.24 Albumin/Globulin Ratio 1.00 Discharge Instructions Discharge Planning: Discharge Planning > 40 minutes If patient is discharged with left ventricular systolic dysfunction: NA Discharged with a beta brie? [] If no, why not? [] Discharged with an carmelita/arb? [] If no, why not? [] Diagnosis: Cellulitis, UTI Diet: Diabetic Activity as tolerated Follow-up with PCP ac scheduled Medications: Amoxicillin 500 mg BID every 12 hours, start tonight Discharge Medications: Medications at Discharge (Home Meds & RX) blood sugar diagnostic (Blood Glucose Test strips) #150 ea 04/23/23 blood-glucose meter (Blood Glucose Monitoring kit) #1 ea 04/23/23 lancets 33 gauge #200 ea 04/23/23 pen needle, diabetic 31 gauge x 5/16" (TRUEplus Pen Needle) #1,200 ea 04/23/23 insulin detemir U-100 100 unit/mL (3 mL) subcutaneous pen (Levemir FlexPen) See Rx Instructions .Route .COMPLEX #15 kits 05/19/23 losartan 100 mg tablet See Rx Instructions .Route .COMPLEX #180 tabs 10/19/23 triamcinolone acetonide 0.1 % topical cream 1 applic topical QDAY #80 grams 10/19/23 amlodipine 10 mg tablet See Rx Instructions .Route .COMPLEX #90 tabs 01/12/24 atorvastatin 80 mg tablet See Rx Instructions .Route .COMPLEX #90 tabs 01/12/24 carvedilol 12.5 mg tablet See Rx Instructions .Route .COMPLEX #180 tabs 01/12/24 clopidogrel 75 mg tablet See Rx Instructions .Route .COMPLEX #90 ea 01/12/24 famotidine 20 mg tablet See Rx Instructions .Route .COMPLEX #180 ea 01/12/24 ferrous sulfate 325 mg (65 mg iron) tablet (FeroSul) See Rx Instructions .Route .COMPLEX #90 tabs 01/12/24 linagliptin 5 mg tablet (Tradjenta) See Rx Instructions .Route .COMPLEX #90 tabs 01/12/24 dapagliflozin propanediol 10 mg tablet (Farxiga) 10 mg PO QAM 01/20/24 sodium bicarbonate 325 mg tablet 650 mg PO BID 01/20/24 cholecalciferol (vitamin D3) 1,250 mcg (50,000 unit) capsule 1,250 mcg PO WEEKLY 04/06/24 furosemide 40 mg tablet 40 mg PO DAILY 04/06/24 insulin aspart U-100 100 unit/mL (3 mL) subcutaneous pen (Novolog FlexPen U-100 Insulin aspart) 1 sliding scale dose subcut USEASDIRECTD PRN diabetes 04/06/24 spironolactone 25 mg tablet See Rx Instructions .Route .COMPLEX 04/06/24 Discharge Plan Discharge Discharge Orders: Discharge Patient (ONCE); Ordered 04/08/24 Ordered By: MEDHAT PRESSLEY Activity Restrictions/Additional Instructions: Diagnosis: Cellulitis, UTI Diet: Diabetic Activity as tolerated Follow-up with PCP ac scheduled Medications: Amoxicillin 500 mg BID every 12 hours, start tonight Instructions: Urinary Tract Infection in Men (GEN), Cellulitis (GEN) Patient Disposition: HOME SELF-CARE Prescriptions: New amoxicillin 500 mg Capsule 500 mg PO Q12HR Qty: 11 0RF Continued Levemir FlexPen 100 unit/mL (3 mL) insulin pen See Rx Instructions .ROUTE .COMPLEX Qty: 15 0RF Dose Instruction: INJECT 10 UNITS (0.1 ML) SUBCUTANEOUSLY EVERY DAY AT BEDTIME Rx Instructions: INJECT 10 UNITS (0.1 ML) SUBCUTANEOUSLY EVERY DAY AT BEDTIME famotidine 20 mg tablet See Rx Instructions .ROUTE .COMPLEX Qty: 180 0RF Dose Instruction: TAKE ONE TABLET TWICE DAILY Rx Instructions: TAKE ONE TABLET TWICE DAILY atorvastatin 80 mg tablet See Rx Instructions .ROUTE .COMPLEX Qty: 90 0RF Dose Instruction: TAKE ONE TABLET EVERY EVENING Rx Instructions: TAKE ONE TABLET EVERY EVENING ferrous sulfate [FeroSul] 325 mg (65 mg iron) tablet See Rx Instructions .ROUTE .COMPLEX Qty: 90 0RF Dose Instruction: TAKE ONE TABLET DAILY Rx Instructions: TAKE ONE TABLET DAILY clopidogrel 75 mg tablet See Rx Instructions .ROUTE .COMPLEX Qty: 90 0RF Dose Instruction: TAKE ONE TABLET DAILY Rx Instructions: TAKE ONE TABLET DAILY amlodipine 10 mg tablet See Rx Instructions .ROUTE .COMPLEX Qty: 90 0RF Dose Instruction: TAKE ONE TABLET DAILY Rx Instructions: TAKE ONE TABLET DAILY Tradjenta 5 mg tablet See Rx Instructions .ROUTE .COMPLEX Qty: 90 0RF Dose Instruction: TAKE ONE TABLET DAILY Rx Instructions: TAKE ONE TABLET DAILY carvedilol 12.5 mg tablet See Rx Instructions .ROUTE .COMPLEX Qty: 180 0RF Dose Instruction: TAKE ONE TABLET TWICE DAILY WITH FOOD Rx Instructions: TAKE ONE TABLET TWICE DAILY WITH FOOD furosemide 40 mg tablet 40 mg PO DAILY spironolactone 25 mg tablet See Rx Instructions .ROUTE .COMPLEX Rx Instructions: TAKE 1 TABLET ORALLY DAILY insulin aspart U-100 [Novolog FlexPen U-100 Insulin] 100 unit/mL (3 mL) insulin pen 1 sliding scale dose subcut USEASDIRECTD PRN (Reason: diabetes) Rx Instructions: May use TID as directed. cholecalciferol (vitamin D3) 1,250 mcg (50,000 unit) capsule 1,250 mcg PO WEEKLY (DME) pen needle, diabetic [TRUEplus Pen Needle] 31 gauge x 5/16" needle See Rx Instructions .ROUTE .MEDSUPPLY Qty: 1200 0RF Rx Instructions: As directed (DME) blood-glucose meter [Blood Glucose Monitoring] Kit See Rx Instructions .ROUTE Qty: 1 0RF Rx Instructions: check before meals and bedtime (DME) Blood Glucose Test Strip See Rx Instructions .ROUTE Qty: 150 0RF Rx Instructions: before meals and bedtime (DME) lancets 33 gauge misc See Rx Instructions .ROUTE Qty: 200 0RF Rx Instructions: before meals and bedtime dapagliflozin propanediol [Farxiga] 10 mg tablet 10 mg PO QAM sodium bicarbonate 325 mg tablet 650 mg PO BID triamcinolone acetonide 0.1 % cream 1 applic topical QDAY Qty: 80 0RF Rx Instructions: may use for 2 weeks only losartan 100 mg tablet See Rx Instructions .ROUTE .COMPLEX Qty: 180 0RF Dose Instruction: TAKE ONE TABLET DAILY Rx Instructions: TAKE ONE TABLET DAILY Did you review [place] [employer] for ALL controlled substances?: No Discussed opioids are addictive and Narcan is available by prescription or from pharmacy.: No Condition: Stable Referrals: KEITH DIGGS APRN,[facility] [Primary Care Provider] - 04/18/24 1:15 pm
[2024-04-08] MEDS: AMOXICILLIN PO SCH (09:40)
[2024-04-08 10:03] VITALS: BP 148/82; PULSE 63; RESP 20; TEMP 98
== END 2024-04-08 13:05 | disposition home or self-care (01) ==
LOC: ED 12:09 → MEDSURG B 12:09
PROVIDERS: ADMIT Hospitalist; ATTEND Nurse Practitioner Family
DX: Z79.4 Long term (current) use of insulin; N18.9 Chronic kidney disease, unspecified; S92.511A Displaced fracture of proximal phalanx of right lesser toe(s), initial encounter for closed fracture; I87.2 Venous insufficiency (chronic) (peripheral); M25.571 Pain in right ankle and joints of right foot; N39.0 Urinary tract infection, site not specified; E78.5 Hyperlipidemia, unspecified; E87.5 Hyperkalemia; D63.1 Anemia in chronic kidney disease; I10 Essential (primary) hypertension; Z51.81 Encounter for therapeutic drug level monitoring; Z20.822 Contact with and (suspected) exposure to COVID-19; L03.115 Cellulitis of right lower limb; Z79.899 Other long term (current) drug therapy; B95.2 Enterococcus as the cause of diseases classified elsewhere; B96.4 Proteus (mirabilis) (morganii) as the cause of diseases classified elsewhere; I69.351 Hemiplegia and hemiparesis following cerebral infarction affecting right dominant side; E11.40 Type 2 diabetes mellitus with diabetic neuropathy, unspecified; E86.0 Dehydration; F17.210 Nicotine dependence, cigarettes, uncomplicated; N17.9 Acute kidney failure, unspecified